=== PATIENT | male | born 1935 | race Caucasian/White ===

== ENCOUNTER 2018-02-07 03:18 | Outpatient (CLI) | END 2018-02-07 03:19 | disposition short-term general hospital (02) | LOC: AMBL 03:18 | PROVIDERS: ATTEND Internal Medicine Geriatric Medicine | DX: I95.9 Hypotension, unspecified (principal); I48.91 Unspecified atrial fibrillation; R94.31 Abnormal electrocardiogram [ECG] [EKG] ==